=== PATIENT | male | born 1990 | race Caucasian/White ===

== ENCOUNTER 2023-02-28 03:33 | Emergency (ER) | payer BC ==
[~2023-02-28] VITALS: Ht 172.7 cm; Wt 111.1 kg
--- NOTE | 2023-02-28 03:33 | NUR ---
BROUGHT BACK TO BED #5 AND TRIAGED. REPORT GIVEN TO MARY
--- NOTE | 2023-02-28 03:35 | NUR ---
FIRST CONTACT WITH PT. ASSESSMENT COMPLETED. AWAITING EVAL AND ORDERS.
[2023-02-28 03:44] VITALS: BP_SYST 146; PULSE 77; RESP 18; TEMP 98.6; O2SAT 96
[2023-02-28] MEDS ORDERED: IBUPROFEN 600 MG TABLET PO ONE (04:00)
[2023-02-28] MEDS ORDERED: DEXAMETHASONE SOD PHOSPHATE 10 MG/ML VIAL PO ONE (04:00)
[2023-02-28] MEDS ORDERED: BENZ1LOZ73 PO ×3 (04:44→04:59)
[2023-02-28] MEDS ORDERED: IBUP-1969 PO ×3 (04:44→04:59)
[2023-02-28] MEDS ORDERED: PSEU120T57 PO ×3 (04:44→04:59)
[2023-02-28] MEDS ORDERED: ACET-2634 PO ×3 (04:44→04:59)
--- NOTE | 2023-02-28 05:06 | NUR ---
Patient given written and verbal discharge instructions and verbalizes understanding. ER MD discussed with patient the results and treatment provided. Patient in stable condition. ID arm band removed. IV catheter removed intact and dressing applied, no active bleeding. Rx of ACETAMINOPHEN, IBUPROFEN, AND SUDAFED given. Patient educated on pain management and to follow up with PMD. Pain Scale . Opportunity for questions provided and answered. Medication side effect fact sheet provided.
[2023-02-28 06:07] LABS: STREPTOCOCCUS A SCREEN (RAPID) NEGATIVE (NEGATIVE)
== END 2023-02-28 05:06 | disposition home or self-care (01) ==
LOC: SED 03:33
DX: U07.1 COVID-19 (principal); B34.9 Viral infection, unspecified; R50.9 Fever, unspecified; M79.10 Myalgia, unspecified site; J02.9 Acute pharyngitis, unspecified; Z79.899 Other long term (current) drug therapy
CPT/HCPCS: 99283; 87426; 86403; 36415; 87081; 87804 ×2; J1100